=== PATIENT | male | born 1950 | race Caucasian/White ===

== ENCOUNTER → 2017-02-28 | Outpatient (CLI) | payer BC ==
[~2017-02-28] MED LIST: FLUT0.15 NAE
--- NOTE | 2017-02-28 10:21 | DIAGNOSTIC IMAGING REPORT ---
RENAL ULTRASOUND HISTORY: Nephrolithiasis. COMPARISON: Abdomen and pelvis CT 03/18/2016. Renal ultrasound 03/06/2016. FINDINGS: Right kidney: 9.8 cm. No hydronephrosis. Moderate cortical thinning, unchanged. A 1.6 cm lower pole parapelvic cyst is again noted. There are 2 subcentimeter cysts within the right kidney with the largest measuring 9 mm. Left kidney: 11.8 cm. No hydronephrosis. Normal corticomedullary differentiation and cortical thickness. Bladder: No bladder wall thickening. The bilateral ureteral jets were identified. IMPRESSION: No hydronephrosis or renal stones. Right renal cysts. Electronically signed by: Jeet Bajwa M.D. 02/28/2017 10:20 AM Dictated Date/Time: 02/28/2017 10:18 AM
== END | disposition home or self-care (01) ==
LOC: C.ULTR 09:14
PROVIDERS: ATTEND Urology
DX: N28.1 Cyst of kidney, acquired (principal)

== ENCOUNTER → 2018-02-28 | Outpatient (CLI) | payer BC ==
--- NOTE | 2018-02-28 12:11 | DIAGNOSTIC IMAGING REPORT ---
KUB CLINICAL HISTORY: N20.0 Kidney [id number] NEPHROLITHIASIS COMPARISON STUDY: No previous studies for comparison. FINDINGS: There is no pathologic bowel dilatation. There is a punctate calcification projected over the upper pole the left kidney suspicious for a calculus. The right renal shadow is largely obscured overlying bowel gas and fecal material. There are no calcifications suspicious for ureteral calculi. There is a 19 mm sclerotic lesion within the right iliac bone, likely representing a bone island. IMPRESSION: 1. No evidence of pathologic bowel dilatation 2. Suspected punctate left renal calculus. Electronically signed by: Armen Junior M.D. 02/28/2018 12:10 PM Dictated Date/Time: 02/28/2018 12:08 PM
--- NOTE | 2018-02-28 13:02 | DIAGNOSTIC IMAGING REPORT ---
RENAL ULTRASOUND HISTORY: Kidney stones. COMPARISON: Abdomen and pelvis CT 03/18/2016. FINDINGS: Right kidney: 10 cm. No hydronephrosis. Moderate cortical thinning. A 1.9 cm parapelvic cyst is again noted. Left kidney: 11 cm. No hydronephrosis. Mild cortical thinning. The left kidney is partially obscured by overlying bowel gas. Bladder: No bladder wall thickening. The bilateral ureteral jets were identified. IMPRESSION: 1. No hydronephrosis. 2. Moderate right and mild left cortical renal thinning. Electronically signed by: Jeet Bajwa M.D. 02/28/2018 1:01 PM Dictated Date/Time: 02/28/2018 12:59 PM
== END | disposition home or self-care (01) ==
LOC: C.ULTR 11:29
PROVIDERS: ATTEND Urology
DX: N20.0 Calculus of kidney (principal)

== ENCOUNTER → 2018-06-27 | Outpatient (CLI) | payer BC | END | disposition home or self-care (01) | LOC: C.RDSM 09:31 | PROVIDERS: ATTEND Orthopaedic Surgery Sports Medicine | DX: M79.672 Pain in left foot (principal) ==

== ENCOUNTER 2023-10-11 13:50 | Observation (INO) ==
--- NOTE | 2023-10-11 16:11 | XRay Report ---
KUB CLINICAL HISTORY: Right flank pain. COMPARISON STUDY: KUB March 31, 2021. CT of the abdomen and pelvis April 29, 2021. FINDINGS: A few bilateral renal calculi measure up to 3 mm. Pelvic calcifications represent phlebolit hs and vascular calcifications. No ureteral calculi are identified. Right iliac bone island is incide ntally noted. No evidence for a bowel obstruction. IMPRESSION: 1. Several small bilateral renal calculi. 2. No ureteral calculi. ACT 112: Negative or not required by law. Electronically signed by: Shar Park M.D. 10/11/2023 4:09 PM
[2023-10-11 16:43] LABS: Basophils # (auto) 0.02 K/uL (0.00-0.20); Basophils % (auto) 0.3 %; Eosinophils # (auto) 0.01 K/uL (0.00-0.50); Eosinophils % (auto) 0.1 %; Hemoglobin 16.3 g/dl (14.0-18.0); Immature Granulocytes # (auto) 0.12 K/uL (0.01-0.20); Immature Granulocytes % (auto) 1.6 %; Lymphocytes # (auto) 0.29 K/uL (1.20-3.40); Lymphocytes % (auto) 3.8 %; Mean Corpuscular Hemoglobin 29.2 pg (25.0-34.0); Mean Corpuscular Hgb Conc 33.3 g/dL (32.0-36.0); Mean Corpuscular Volume 87.8 fL (80.0-100.0); Mean Platelet Volume 10.7 fL (9.4-12.4); Monocytes # (auto) 0.41 K/uL (0.11-0.59); Monocytes % (auto) 5.4 %; Neutrophils % (auto) 88.8 %; Platelet Count 112 K/uL (130-400); RDW Coefficient of Variation 13.6 % (11.5-14.5); RDW Standard Deviation 43.9 fL (36.4-46.3); Red Blood Count 5.58 M/uL (4.70-6.10); White Blood Count 7.65 K/ul (4.8-10.8)
[2023-10-11 16:45] LABS: Appearance Urine Clear (Clear); Bilirubin Urine Negative (Negative); Blood Urine Negative (Negative); Color Urine Yellow; Glucose Urine UA Negative (Negative); Ketones Urine 1+ (Negative); Leukocyte Esterase Urine Negative (Negative); Nitrite Urine Negative (Negative); Protein Urine Negative (Negative); Specific Gravity Urine 1.024 (1.000-1.030); Urobilinogen Urine Negative (Negative)
[2023-10-11 16:56] LABS: Albumin Level 4.6 gm/dl (3.4-5.0); Bilirubin,Total 0.7 mg/dl (0.2-1.0); Calcium 9.8 mg/dl (8.6-10.3); Potassium 4.1 mmol/L (3.5-5.1)
[2023-10-11 17:02] LABS: Albumin Globulin Ratio 1.6 (0.9-2); BUN Creatinine Ratio 19.7 (10-20); Creatinine Clr Calc Pharmacy 53.9 ml/min; Est GFR (African American) 67.7 ml/min; Est GFR (Non-African American) 58.5 ml/min; Globulin 2.8 gm/dl (2.5-4.0); Total Protein 7.4 gm/dl (6.0-8.3)
--- NOTE | 2023-10-11 18:07 | CT Scan Report ---
CT abd pelvis wo con CLINICAL HISTORY: poss ureteral stone TECHNIQUE: Helical axial images of the abdomen and pelvis were obtained. Automated dose lowering tech niques and/or adjustment according to patient size were utilized for this exam. This exam was perfor med without intravenous contrast. CT DOSE: 1002.42 mGy.cm COMPARISON: Comparison is made to CT abdomen pelvis 04/29/2021 FINDINGS: Lower chest: Bibasilar atelectasis versus scarring is seen. Liver: Unremarkable. No focal lesions are seen. Gallbladder and biliary tree: Gallbladder stones are seen. The gallbladder wall measures 3 mm with mi ld pericholecystic fluid. No intra- or extrahepatic biliary ductal dilation. Pancreas: Unremarkable, no focal lesions. Spleen: Splenule is incidentally noted. Adrenals: Unremarkable. Kidneys and ureters: Perinephric stranding is noted bilaterally. Multiple renal cysts are seen. Nonob structive stones are seen bilaterally. No ureteral stones noted. Bladder: Diffuse homogeneous wall thickening is seen. Reproductive organs: Prostatomegaly is seen. Bowel: Diverticulosis is seen without evidence of diverticulitis. Patient is status post appendectomy . Lymph nodes Retroperitoneal: Unremarkable. Pelvic: Unremarkable. Mesenteric: Unremarkable. Peritoneum: Normal. Vessels: Atherosclerotic calcifications are seen. Abdominal wall: Unremarkable. Bones: Focal sclerotic lesion in the right iliac wing measuring 2 cm is unchanged from prior exam. IMPRESSION: 1. Prominence of the gallbladder wall with pericholecystic fluid and multiple renal stones, findings are suggestive of acute cholecystitis. Clinical correlation is recommended. 2. No evidence of ureteral stones or hydronephrosis. Nonobstructive stones are seen. 3. Diverticulosis without diverticulitis. ACT 112: Negative or not required by law. Electronically signed by: Victor Manuel Herrera M.D. 10/11/2023 6:05 PM
[2023-10-11] MEDS ORDERED: metroNIDAZOLE 500 MG/100 ML BAG IV STA (18:31)
[2023-10-11] MEDS ORDERED: cefTRIAXone SODIUM 2,000 MG/50 ML BAG IV STA (18:31)
--- NOTE | 2023-10-11 19:29 | Surgery Consultation ---
Date of Consultation October 11, 2023 Assessment & Plan (1) Cholelithiasis: The patient is being admitted on the hospitalist service. From a surgical perspective we recommend proceeding as follows: Provide analgesics Provide antiemetics The patient has no elevation of his LFTs or leukocytosis and does not have definite cholecystitis on CT scan of the abdomen pelvis. We will therefore obtain a gallbladder ultrasound for further delineation of the biliary system. If the patient is noted to have cholecystitis on gallbladder ultrasound we will tentatively plan for cholecystectomy with Dr. Sultana on 10/12/2023. If the gallbladder ultrasound is still not definitive for cholecystitis consideration will be given to performing a HIDA scan on 10/12/2023 The patient has been initiated on antibiotics in form of Rocephin and Flagyl which should continue IV fluids to be provided for hydration Serial labs to be followed I feel it is acceptable for patient to have clear liquids this evening but we will make him n.p.o. after midnight in anticipation of potential surgery on 10/12/2023 We will check a portable chest x-ray as well as an EKG for preoperative purposes Would recommend using SCDs only for DVT prevention, no chemical means due to the potential need for surgery Additional recommendations to be forthcoming based on his ensuing clinical work- up as it unfolds History of Present Illness Reason for Consultation: Cholelithiasis was concern for cholecystitis History of Present Illness This is a 73-year-old male who presented to [facility] secondary to some right flank pain along with right upper quadrant pain. Question the patient about symptomatology in the past several weeks to months and the patient notes that he has been getting some postprandial pain primarily confined to the right upper quadrant for the past several months. He says that this usually occurs between 30 and 60 minutes after eating and usually resolves within an hour. He notes that he had similar symptoms today but he also had some pain in his right flank and it appeared to be worse than usual so he presented to the emergency department. Patient says he does have a history of kidney stones and that is what he thought the problem was. With his current symptomatology he has had some nausea and vomiting. He does note that his current presentation occurred approximate 2 hours after eating breakfast. He denies any fevers, shakes, or chills. He has had a previous abdominal surgeries in the form of an appendectomy. He also states that he has a known history of gallstones. Since arrival to hospital patient has had labs and imaging which I independent reviewed. The patient had a KUB that showed some small bilateral renal calculi with no ureteral calculi noted. A CT scan of the abdomen pelvis was performed. This showed some prominence of the gallbladder with some pericholecystic fluid and multiple gallstones suggestive of cholecystitis. There is no evidence of any ureteral stones or hydronephrosis. Labs include a CBC her white blood cell count, hemoglobin and hematocrit were normal. Platelet count was slightly low at 112,000. Chemistry profile showed sodium, potassium, and creatinine were normal. There is no elevation of patient's bilirubin, transaminases, or alkaline phosphatase. A urinalysis was not taken of infection. As noted above the patient says he has a known history of gallstones. His records were reviewed and he did have a comparison CT scan from 04/29/2021. This study did show the patient had numerous calcified gallstones without CT evidence of cholecystitis. The patient notes that he leads an active lifestyle able to perform various house and outdoor yard chores without any limiting factors. He specifically notes that he can walk up steps and inclines without any chest pain or shortness of breath. It is also noteworthy to mention that the patient says that he was a type II diabetic, but he notes that he does not have to take any medication for this condition as he has resolved this condition with diet and exercise. At the time of my interview the patient was resting comfortably in bed he was in no distress. Addendum: Chest x-ray was performed did not show any evidence of pneumonia. An EKG was performed that showed normal sinus rhythm without changes indicative of acute ischemia Allergies Allergy/AdvReac Type Severity Reaction Status Date / Time Sulfa (Sulfonamide AdvReac Mild Nausea Verified 10/11/23 18:19 Antibiotics) Home Medications Medication Instructions Recorded Confirmed Type K4-X-ueoro-soy 2 cap PO DAILY 07/27/23 10/11/23 History nahtf-vcymmwktgq-gehzoalp 1,200 unit-15 unit-35 mcg cap (Prostate 2.4) calcium carbonate 500 mg-vitamin 1 tab PO BID 07/27/23 10/11/23 History D3 10 mcg (400 unit) tablet (Calcium 500 + D) famotidine 20 mg tablet 20 mg PO DAILY PRN Acid Reflux 07/27/23 10/11/23 History fluticasone propionate 50 1 spray intranasal DAILY PRN 07/27/23 10/11/23 History mcg/actuation nasal .allergies spray,suspension (Flonase Allergy Relief) rosuvastatin 20 mg tablet 20 mg PO HS 07/27/23 10/11/23 History tamsulosin 0.4 mg capsule 0.4 mg PO BID 07/27/23 10/11/23 History Patient History Medical History Cystocele Repaired 2002 Kidney stones Surgical History History of wisdom tooth extraction 1966 History of lithotripsy 1980 History of appendectomy 1961 Family History Mother Hearing loss Heart disease Other No family history of adverse response to anesthesia No family history of bleeding disorder Social History Smoking Status: Never smoker Tobacco Type: Cigarettes Hx Alcohol Use: No Hx Substance Use: No Preferred Language: Romansh Feels Safe at Home: Yes Review of Systems Constitutional: no fever and no chills Ear, Nose, Mouth, Throat: no hearing loss Respiratory: no cough and no dyspnea Cardiovascular: no chest pain Gastrointestinal: as per Subjective / HPI Genitourinary: no dysuria Musculoskeletal: + back pain (Right flank) Integumentary: no rash Neurologic: no localized weakness Physical Exam Constitutional: WD/WN, vitals as above Eyes: + anicteric sclerae ENMT: Ears: no hearing impairment and no external ear abnormality Mouth: no oropharynx abnormality Neck: trachea midline Respiratory: normal respiratory effort; no respiratory distress and no labored breathing Cardiovascular: Rate/Rhythm: regular rate and regular rhythm Gastrointestinal (Abdomen): Abdomen is soft and nondistended. It is nonrigid. Bowel sounds are present. There is no rebound tenderness or guarding. The patient did have some pain with deep palpation in the right upper quadrant Musculoskeletal: No calf tenderness Skin: no rashes Neurologic: moves all extremities Psychiatric: A+Ox3, euthymic affect Results & Data Vital Signs (Past 12 Hours) Vital Signs Temp Pulse Pulse Resp BP BP Pulse Ox 10/11/23 18:56 54 L 18 149/78 H 99 10/11/23 14:20 36.6 C 56 L 16 152/73 H 98 O2 Del Method 10/11/23 18:56 10/11/23 14:20 Room Air PG Care Time/CCT Total # of Minutes Spent Total Time Spent with Patient: Total time spent is greater than 50% in coordination of care (as documented) at patient's floor/unit and/or counseling patient: Coding Level of Care Code 76526 INT INP/OBS CARE 75MIN Diagnoses Cholelithiasis K80.20
--- NOTE | 2023-10-11 19:30 | History & Physical Report ---
Date of Service October 11, 2023 Assessment & Plan (1) Cholelithiasis: Plan: Consult surgery - planning on US, if negative for acute edin will get HIDA in AM - suspect he has more of an underlying chronic cholecystitis given normal exam, equivocal imaging findings, LFTs and WBC NPO after midnight Ceftriaxone + metronidazole to cover for acute edin pending further workup (2) Right flank pain: Plan: Suspect this pain for the last 2-3 months is biliary colic. Plan VTE Prophyalxis - deferred pending surgical decision Diet - clear liquid, low fat (after US), NPO after midnight Disposition - observation to med/surg Admission and Anticipated Discharge Date Admission Date: October 11, 2023 History of Present Illness Chief Complaint: Right flank pain Primary Care Provider: DO Daniel Patino is a 73 year old male who presents to the ER with Right flank pain on and off for the last 2-3 months. He reports the pain lasted longer today with increased severity and associated vomiting therefore decided to come to the ER. He reports current severity 4-5/10, on arrival to the ER it was at it's worse 8-9/10. No change in BM, diarrhea, constipation or black stool. He reports similar symtpoms with multiple kidney stones in the past. No association with pain to eating. Allergies Allergy/AdvReac Type Severity Reaction Status Date / Time Sulfa (Sulfonamide AdvReac Mild Nausea Verified 10/11/23 18:19 Antibiotics) Home Medications Medication Instructions Recorded Confirmed Type C0-F-rhfjh-soy 2 cap PO DAILY 07/27/23 10/11/23 History qcgdf-cbjuevmzdw-ebqfrfkv 1,200 unit-15 unit-35 mcg cap (Prostate 2.4) calcium carbonate 500 mg-vitamin 1 tab PO BID 07/27/23 10/11/23 History D3 10 mcg (400 unit) tablet (Calcium 500 + D) famotidine 20 mg tablet 20 mg PO DAILY PRN Acid Reflux 07/27/23 10/11/23 History fluticasone propionate 50 1 spray intranasal DAILY PRN 07/27/23 10/11/23 History mcg/actuation nasal .allergies spray,suspension (Flonase Allergy Relief) rosuvastatin 20 mg tablet 20 mg PO HS 07/27/23 10/11/23 History tamsulosin 0.4 mg capsule 0.4 mg PO BID 07/27/23 10/11/23 History Past Med/Surg History Medical History Cystocele Repaired 2002 Kidney stones Surgical History History of wisdom tooth extraction 1967 History of lithotripsy 1980 History of appendectomy 196 Family History Mother Hearing loss Heart disease Other No family history of adverse response to anesthesia No family history of bleeding disorder Social History Smoking Status: Never smoker Tobacco Type: Cigarettes Hx Alcohol Use: No Hx Substance Use: No Preferred Language: Thai Feels Safe at Home: Yes Review of Systems Review of Systems: All systems reviewed & are unremarkable except as noted in HPI & below Physical Exam Constitutional: WD/WN, vitals as above Respiratory: normal respiratory effort, lungs clear to auscultation Cardiovascular: RRR, no murmur, no edema Gastrointestinal (Abdomen): normal bowel sounds, soft, nontender, no hepatosplenomegaly Musculoskeletal: no cyanosis or clubbing, extremities motor strength 5/5 Skin: no rashes, warm and dry Neurologic: moves all extremities and awake; not confused Psychiatric: A+Ox3, euthymic affect Genitourinary: no CVA tenderness Results & Data Results & Data Vital Signs (Past 12 Hours) Vital Signs Temp Pulse Pulse Resp BP BP Pulse Ox 10/11/23 18:56 54 L 18 149/78 H 99 10/11/23 14:20 36.6 C 56 L 16 152/73 H 98 O2 Del Method 10/11/23 18:56 10/11/23 14:20 Room Air Diagnostic Findings CT abd pelvis wo con CLINICAL HISTORY: poss ureteral stone TECHNIQUE: Helical axial images of the abdomen and pelvis were obtained. Automated dose lowering techniques and/or adjustment according to patient size were utilized for this exam. This exam was performed without intravenous contrast. CT DOSE: 1002.42 mGy.cm COMPARISON: Comparison is made to CT abdomen pelvis 04/29/2021 FINDINGS: Lower chest: Bibasilar atelectasis versus scarring is seen. Liver: Unremarkable. No focal lesions are seen. Gallbladder and biliary tree: Gallbladder stones are seen. The gallbladder wall measures 3 mm with mild pericholecystic fluid. No intra- or extrahepatic biliary ductal dilation. Pancreas: Unremarkable, no focal lesions. Spleen: Splenule is incidentally noted. Adrenals: Unremarkable. Kidneys and ureters: Perinephric stranding is noted bilaterally. Multiple renal cysts are seen. Nonobstructive stones are seen bilaterally. No ureteral stones noted. Bladder: Diffuse homogeneous wall thickening is seen. Reproductive organs: Prostatomegaly is seen. Bowel: Diverticulosis is seen without evidence of diverticulitis. Patient is status post appendectomy. Lymph nodes Retroperitoneal: Unremarkable. Pelvic: Unremarkable. Mesenteric: Unremarkable. Peritoneum: Normal. Vessels: Atherosclerotic calcifications are seen. Abdominal wall: Unremarkable. Bones: Focal sclerotic lesion in the right iliac wing measuring 2 cm is unchanged from prior exam. IMPRESSION: 1. Prominence of the gallbladder wall with pericholecystic fluid and multiple renal stones, findings are suggestive of acute cholecystitis. Clinical correlation is recommended. 2. No evidence of ureteral stones or hydronephrosis. Nonobstructive stones are seen. 3. Diverticulosis without diverticulitis. Medications Administered ER Medications Given: Ceftriaxone 2g IV Metronidazole 500mg IV Code Status & VTE Plan Code Status Full VTE Prophylaxis Plan VTE Prophylaxis will be ordered: No PG Care Time/CCT Total # of Minutes Spent Total Time Spent with Patient: Total time spent is greater than 50% in coordination of care (as documented) at patient's floor/unit and/or counseling patient: Coding Level of Care Code 89674 INT INP/OBS CARE 2/55MIN Diagnoses Cholelithiasis K80.20 Right flank pain R10.9
[2023-10-11] MEDS ORDERED: FAMOTIDINE 20 MG in SYRINGE 3 ML IV SCH (20:00)
[2023-10-11] MEDS ORDERED: ROSUVASTATIN CALCIUM 20 MG TAB PO SCH (21:42)
[2023-10-11] MEDS ORDERED: ACETAMINOPHEN 325 MG TAB PO PRN (21:42)
[2023-10-11] MEDS: PLASMA-LYTE A 1,000 ML IV SCH (22:13)
[2023-10-11] MEDS: TAMSULOSIN HCL 0.4 MG CAP PO SCH (22:13)
--- NOTE | 2023-10-11 23:06 | Ultrasound Report ---
Exam(s): US GALLBLADDER EXAM: US Abdomen Limited, Gallbladder CLINICAL HISTORY: Reason for exam: ? cholecystitis. TECHNIQUE: Real-time ultrasound of the right upper quadrant with image documentation. COMPARISON: No relevant prior studies available. FINDINGS: Liver: Irregular cyst in the LEFT hepatic lobe measures 1.1 x 1.1 cm. Gallbladder: Diffuse cholelithiasis. Gallbladder wall thickening is 4 mm (upper limits of normal). Negative Gonazlez sign. Correlate for acute cholecystitis. Common bile duct: 5 mm common bile duct. No stones. No dilation. Pancreas: Poorly evaluated pancreas. Right kidney: Multiple right-sided renal cysts, measuring up to 2.1 cm. IMPRESSION: 1. Diffuse cholelithiasis. Gallbladder wall thickening is 4 mm (upper limits of normal). Negative Gonzalez sign. Correlate for acute cholecystitis. 2. Irregular cyst in the LEFT hepatic lobe measures 1.1 x 1.1 cm. Electronically signed by: Ryan Velasquez MD 10/11/23 23:05 PM
--- NOTE | 2023-10-11 23:48 | Emergency Department Note ---
History of Present Illness General Chief Complaint: Urinary Symptoms Stated Complaint: KIDNEY STONE, PAIN WHEN URINARTING, VOMITING Time Seen by Provider: 10/11/23 17:45 History of Present Illness Provider Complaint: abdominal pain and flank pain Onset (ago): 1 day(s) Location: R flank Migration to: RUQ and RLQ Maximum Pain Intensity: 9 Current Pain Intensity: 9 Quality: + stabbing and + sharp Relieved By: + nothing Exacerbated By: + nothing Context: + history of similar episodes (Feels like kidney stones that he has had in the past); no foreign travel, no possible food poisoning, no sick contacts, no recent antibiotic use, no recent surgery/procedure or no recent injury Associated Symptoms: + nausea and + vomiting; no diarrhea, no fever, no chills, no constipation, no dysuria, no hematemesis, no hematochezia, no melena, no hematuria, no headache, no chest pain and no breathing difficulty Home Medications Medication Instructions Recorded Confirmed Type P8-Q-pvant-soy 2 cap PO DAILY 07/27/23 10/11/23 History jliiq-kpfyffyomt-ugbkshrn 1,200 unit-15 unit-35 mcg cap (Prostate 2.4) calcium carbonate 500 mg-vitamin 1 tab PO BID 07/27/23 10/11/23 History D3 10 mcg (400 unit) tablet (Calcium 500 + D) famotidine 20 mg tablet 20 mg PO DAILY PRN Acid Reflux 07/27/23 10/11/23 History fluticasone propionate 50 1 spray intranasal DAILY PRN 07/27/23 10/11/23 History mcg/actuation nasal .allergies spray,suspension (Flonase Allergy Relief) rosuvastatin 20 mg tablet 20 mg PO HS 07/27/23 10/11/23 History tamsulosin 0.4 mg capsule 0.4 mg PO BID 07/27/23 10/11/23 History Allergies Allergy/AdvReac Type Severity Reaction Status Date / Time Sulfa (Sulfonamide AdvReac Mild Nausea Verified 10/11/23 18:19 Antibiotics) Past Med/Surg History Medical History Cystocele Repaired 2002 Kidney stones Surgical History History of wisdom tooth extraction 1966 History of lithotripsy 1981 History of appendectomy 1961 Family History Mother Hearing loss Heart disease Other No family history of adverse response to anesthesia No family history of bleeding disorder Social History Smoking Status: Never smoker Tobacco Type: Cigarettes Hx Alcohol Use: No Hx Substance Use: No Preferred Language: Kazakh Communication Ability: Effective Senior Qualitative Researcher Required: No Beliefs That Will Affect Care: None Current Living Situation: Spouse Feels Safe at Home: Yes Safety Concerns: Feels Safe At This Time Physical Exam 2 Vital Signs: Vital Signs - 24 hr 10/11/23 14:20 10/11/23 18:56 Temperature 36.6 C Temperature Source Temporal Artery Sc an Pulse Rate 56 L Pulse Rate [Apical ] 54 L Respiratory Rate 16 18 Blood Pressure 152/73 H Blood Pressure [Ri ght Arm] 149/78 H Blood Pressure Cynthia n 99 Blood Pressure Cynthia n [Right Arm] 101 Pulse Oximetry 98 99 Oxygen Delivery Me thod Room Air Sepsis Recent Feve r Within 48 Hours No Sepsis New/Unexpla ined Change in Men ariela Status No Sepsis Action Take n by Nursing No Action Required Physical Exam: Physical Exam GENERAL: She is oriented to person, place, and time. She appears well-developed and well-nourished. She does not appear distressed. HENT: Exam performed. -Head: Normocephalic and atraumatic. -Right Ear: External ear normal. No mastoid erythema -Left Ear: External ear normal. No mastoid erythema -Mouth/Throat: The oropharynx is clear and moist. No trismus in the jaw. No dental abscesses or uvula swelling. No oropharyngeal exudate or tonsillar abscesses. EYES: Conjunctivae and EOM are normal.Right eye exhibits no discharge. Left eye exhibits no discharge. No scleral icterus. NECK: Normal range of motion. Neck supple. No JVD present. No tracheal deviation and normal range of motion present. CV: Normal rate, regular rhythm, normal heart sounds and intact distal pulses. There is no peripheral edema. Palpable radial pulses bue. PULM/CHEST: Effort normal and breath sounds normal. No respiratory distress. No stridor. She has no wheezes. She has no rales. -Chest Wall: She exhibits no tenderness. ABD: The abdomen is soft. Bowel sounds are normal. She has no distension. No mass is present. There is no tenderness. There is no rebound, no guarding, no Gonzalez's sign and no tenderness at McBurney's point. Rovsig negative MUSC/SKEL: Normal range of motion. There is no peripheral edema, tenderness or deformity. NEURO: Motor and sensation grossly intact. SKIN: Skin is warm and dry. She is not diaphoretic. PSYCH: She has a normal mood and affect. Behavior is normal. Judgment and thought content normal. Course Course 1744: The patient was evaluated in room C5. A complete history and physical exam was performed Cardiac monitoring: An order was placed for continuous cardiac monitoring. The monitor shows a rate of 70 with sinus rhythm interpreted by ma 1828: Vital signs stable. Labs within normal limits. CT imaging does not show any ureteral stones but does show evidence of cholecystitis. Discussed case with Dr. Sultana general surgery who recommends to for the patient to be admitted to medicine. He states the medicine team can get a HIDA scan or an ultrasound and he will evaluate the patient for possible cholecystectomy tomorrow. Patient be admitted to the [facility] team Dr. Mathis will be notified. Administered Medications Famotidine 20 mg/ Syringe 5 mls @ 2.5 mls/min IV Q24H NINA Stop: 11/10/23 19:59 Last Admin: 10/11/23 21:06 Dose: 2.5 mls/min Documented By: BLACK Parenteral Electrolytes (Plasma-Lyte A Ph 7.4) 1,000 mls @ 125 mls/hr IV .Q8H NINA Stop: 11/10/23 21:41 Last Admin: 10/11/23 22:13 Dose: 125 mls/hr Documented By: CLARA Rosuvastatin Calcium (Rosuvastatin Calcium 20 Mg Tab) 20 mg PO HS NINA Stop: 11/10/23 21:41 Last Admin: 10/11/23 22:13 Dose: 20 mg Documented By: CLARA Tamsulosin HCl (Tamsulosin Hcl 0.4 Mg Cap) 0.4 mg PO BID NINA Stop: 11/10/23 21:41 Last Admin: 10/11/23 22:13 Dose: 0.4 mg Documented By: CLARA Discontinued Medications Ceftriaxone Sodium (Rocephin) 2,000 mg in 50 mls @ 100 mls/hr IV NOW STA Stop: 10/11/23 19:00 Last Infusion: 10/11/23 19:32 Dose: Infused Documented By: Admin: 10/11/23 18:54 Dose: 100 mls/hr Documented By: BLACK Metronidazole (Flagyl) 500 mg in 100 mls @ 100 mls/hr IV NOW STA Stop: 10/11/23 19:30 Last Infusion: 10/11/23 21:07 Dose: Infused Documented By: Admin: 10/11/23 19:50 Dose: 100 mls/hr Documented By: BLACK Medical Decision Making Laboratory Data Attestation: I reviewed the patient's lab results. 10/11/23 16:19 10/11/23 16:19 Lab Results 10/11/23 10/11/23 Range/Units 16:19 16:20 WBC 7.65 (4.8-10.8) K/ul RBC 5.58 (4.70-6.10) M/uL Hgb 16.3 (14.0-18.0) g/dl Hct 49.0 (42.0-52.0) % MCV 87.8 (80.0-100.0) fL MCH 29.2 (25.0-34.0) pg MCHC 33.3 (32.0-36.0) g/dL RDW Std Deviation 43.9 (36.4-46.3) fL RDW Coeff of Johan 13.6 (11.5-14.5) % Plt Count 112 L (130-400) K/uL MPV 10.7 (9.4-12.4) fL Immature Gran % (Auto) 1.6 % Neut % (Auto) 88.8 % Lymph % (Auto) 3.8 % [place] % (Auto) 5.4 % Eos % (Auto) 0.1 % Baso % (Auto) 0.3 % Neut # (Auto) 6.80 H (1.40-6.50) K/uL Lymph # (Auto) 0.29 L (1.20-3.40) K/uL [place] # (Auto) 0.41 (0.11-0.59) K/uL Eos # (Auto) 0.01 (0.00-0.50) K/uL Baso # (Auto) 0.02 (0.00-0.20) K/uL Immature Gran # (Auto) 0.12 (0.01-0.20) K/uL Sodium 140 (136-145) mmol/L Potassium 4.1 (3.5-5.1) mmol/L Chloride 104 (98-107) mmol/L Carbon Dioxide 28 (21-32) mmol/L Anion Gap 8 (3-11) BUN 24 H (6-23) mg/dl Creatinine 1.22 (0.6-1.4) mg/dl Est Cr Clr Drug Dosing 53.9 ml/min Est GFR ( Amer) 67.7 ml/min Est GFR (Non-Af Amer) 58.5 ml/min BUN/Creatinine Ratio 19.7 (10-20) Glucose 127 H (70-99(Fasting)) mg/dl Calcium 9.8 (8.6-10.3) mg/dl Total Bilirubin 0.7 (0.2-1.0) mg/dl AST 19 (13-39) U/L ALT 20 (7-52) U/L Alkaline Phosphatase 60 (34-104) U/L Total Protein 7.4 (6.0-8.3) gm/dl Albumin 4.6 (3.4-5.0) gm/dl Globulin 2.8 (2.5-4.0) gm/dl Albumin/Globulin Ratio 1.6 (0.9-2) Urine Color Yellow Urine Appearance Clear (Clear) Urine pH 5.0 (4.5-7.5) Ur Specific [place] 1.024 (1.000-1.030) Urine Protein Negative (Negative) Urine Glucose (UA) Negative (Negative) Urine Ketones 1+ H (Negative) Urine Blood Negative (Negative) Urine Nitrite Negative (Negative) Urine Bilirubin Negative (Negative) Urine Urobilinogen Negative (Negative) Ur Leukocyte Esterase Negative (Negative) Imaging Data Radiologist's Impression: CT abd pelvis wo con CLINICAL HISTORY: poss ureteral stone TECHNIQUE: Helical axial images of the abdomen and pelvis were obtained. Automated dose lowering techniques and/or adjustment according to patient size were utilized for this exam. This exam was performed without intravenous contrast. CT DOSE: 1002.42 mGy.cm COMPARISON: Comparison is made to CT abdomen pelvis 04/29/2021 FINDINGS: Lower chest: Bibasilar atelectasis versus scarring is seen. Liver: Unremarkable. No focal lesions are seen. Gallbladder and biliary tree: Gallbladder stones are seen. The gallbladder wall measures 3 mm with mild pericholecystic fluid. No intra- or extrahepatic biliary ductal dilation. Pancreas: Unremarkable, no focal lesions. Spleen: Splenule is incidentally noted. Adrenals: Unremarkable. Kidneys and ureters: Perinephric stranding is noted bilaterally. Multiple renal cysts are seen. Nonobstructive stones are seen bilaterally. No ureteral stones noted. Bladder: Diffuse homogeneous wall thickening is seen. Reproductive organs: Prostatomegaly is seen. Bowel: Diverticulosis is seen without evidence of diverticulitis. Patient is status post appendectomy. Lymph nodes Retroperitoneal: Unremarkable. Pelvic: Unremarkable. Mesenteric: Unremarkable. Peritoneum: Normal. Vessels: Atherosclerotic calcifications are seen. Abdominal wall: Unremarkable. Bones: Focal sclerotic lesion in the right iliac wing measuring 2 cm is unchanged from prior exam. IMPRESSION: 1. Prominence of the gallbladder wall with pericholecystic fluid and multiple renal stones, findings are suggestive of acute cholecystitis. Clinical correlation is recommended. 2. No evidence of ureteral stones or hydronephrosis. Nonobstructive stones are seen. 3. Diverticulosis without diverticulitis. ACT 112: Negative or not required by law. Electronically signed by: Victor Manuel Herrera M.D. 10/11/2023 6:05 PM Dictated: 10/11/231800 Transcribed: 10/11/231800 ECG Data Attestation: I personally reviewed and interpreted this ECG as follows: Indication: abdominal pain Rate (beats per minute): 59 Rhythm: sinus bradycardia Findings: no ST depression, no ST elevation or no prolonged QT [facility] Narrative 1745: The patient was evaluated in room C5. A complete history and physical exam was performed Cardiac monitoring: An order was placed for continuous cardiac monitoring. The monitor shows a rate of 70 with sinus rhythm interpreted by ma 1828: Vital signs stable. Labs within normal limits. CT imaging does not show any ureteral stones but does show evidence of cholecystitis. Discussed case with Dr. Sultana general surgery who recommends to for the patient to be admitted to medicine. He states the medicine team can get a HIDA scan or an ultrasound and he will evaluate the patient for possible cholecystectomy tomorrow. Patient be admitted to the [facility] team Dr. Mathis will be notified. Impression & Plan Gallstones Discharge Plan Visit Data Chief Complaint: Urinary Symptoms Stated Complaint: KIDNEY STONE, PAIN WHEN URINARTING, VOMITING ED Provider: Herman Lopez Discharge Problem: Gallstones Patient Disposition: Admitted As Inpatient Discharge Instructions Interventions: ED Discharge Assessment Last Done: 10/11/23 20:54
[2023-10-12] MEDS: metroNIDAZOLE 500 MG/100 ML BAG IV SCH ×2 (03:43→13:13)
[2023-10-12] MEDS: PLASMA-LYTE A 1,000 ML IV SCH ×2 (05:26→14:38)
[2023-10-12 06:45] LABS: Basophils # (auto) 0.02 K/uL (0.00-0.20); Basophils % (auto) 0.3 %; Eosinophils # (auto) 0.07 K/uL (0.00-0.50); Eosinophils % (auto) 1.1 %; Hematocrit (blood only) 43.3 % (42.0-52.0); Hemoglobin 14.6 g/dl (14.0-18.0); Immature Granulocytes # (auto) 0.09 K/uL (0.01-0.20); Immature Granulocytes % (auto) 1.4 %; Lymphocytes # (auto) 0.59 K/uL (1.20-3.40); Lymphocytes % (auto) 9.5 %; Mean Corpuscular Hgb Conc 33.7 g/dL (32.0-36.0); Mean Corpuscular Volume 86.1 fL (80.0-100.0); Mean Platelet Volume 10.9 fL (9.4-12.4); Monocytes % (auto) 12.9 %; Neutrophils # (auto) 4.65 K/uL (1.40-6.50); Neutrophils % (auto) 74.8 %; Platelet Count 106 K/uL (130-400); RDW Coefficient of Variation 13.5 % (11.5-14.5); RDW Standard Deviation 42.5 fL (36.4-46.3); Red Blood Count 5.03 M/uL (4.70-6.10); White Blood Count 6.22 K/ul (4.8-10.8)
[2023-10-12 06:46] LABS: Albumin Globulin Ratio 1.8 (0.9-2); Albumin Level 3.9 gm/dl (3.4-5.0); Bilirubin,Total 0.8 mg/dl (0.2-1.0); Calcium 8.8 mg/dl (8.6-10.3); Creatinine Clr Calc Pharmacy 58.2 ml/min; Est GFR (African American) 74.3 ml/min; Est GFR (Non-African American) 64.1 ml/min; Globulin 2.2 gm/dl (2.5-4.0); Potassium 3.6 mmol/L (3.5-5.1); Total Protein 6.1 gm/dl (6.0-8.3)
--- NOTE | 2023-10-12 07:44 | XRay Report ---
XR chest 1V portable CLINICAL HISTORY: pre-op TECHNIQUE: Single frontal radiograph of the chest was obtained. Comparison: Comparison is made to chest radiograph 08/22/2020 FINDINGS: No lines and tubes are seen. The cardiomediastinal silhouette is normal. The lungs are clear. No evid ence of pleural effusion or pneumothorax. IMPRESSION: No acute chest disease. ACT 112: Negative or not required by law. Electronically signed by: Victor Manuel Herrera M.D. 10/12/2023 7:42 AM
[2023-10-12] MEDS: TAMSULOSIN HCL 0.4 MG CAP PO SCH (08:09)
--- NOTE | 2023-10-12 08:44 | Electrocardiogram Report ---
Test Reason : Blood Pressure : / mmHG Vent. Rate : 059 BPM Atrial Rate : 059 BPM P-R Int : 146 ms QRS Dur : 088 ms QT Int : 422 ms P-R-T Axes : 013 038 010 degrees QTc Int : 417 ms Sinus bradycardia Otherwise normal ECG When compared with ECG of 22-AUG-2020 11:03, No significant change was found Confirmed by Spike Willis ([id number]) on 10/12/2023 8:43:48 AM Referred By: REFERRED SELF Confirmed By:Spike Willis
[2023-10-12] MEDS ORDERED: FLUTICASONE PROPIONATE NA SPR 16 GM BTL SCH (09:00)
--- NOTE | 2023-10-12 12:01 | Nuclear Medicine Report ---
NUCLEAR MEDICINE HEPATOBILIARY SCAN CLINICAL HISTORY: Abnormal gallbladder on CT and ultrasound. COMPARISON: CT of the abdomen and pelvis and right upper quadrant ultrasound October 11, 2023. TECHNIQUE: 5.2 mCi of technetium 99m Choletec IV was injected at 10:10 AM on October 06, 2023. Imm ediately following injection, imaging of the abdomen was carried out for 60 minutes in the anterior p rojection. FINDINGS: Hepatic uptake of radiotracer is prompt and homogeneous. Activity is identified within the common bile duct and small bowel at 10 minutes. Gallbladder activity is first noted at 40 minutes. F illing defects within the gallbladder represent gallstones. IMPRESSION: No scintigraphic evidence for acute cholecystitis. ACT 112: Negative or not required by law. Electronically signed by: Shar Park M.D. 10/12/2023 11:59 AM
--- NOTE | 2023-10-12 14:53 | Surgery Progress Note ---
Date of Service October 12, 2023 Assessment & Plan (1) Cholelithiasis: Plan: Patient sitting up in chair Reports RUQ pain a 1/10 . TTP rates pain 2/10, has not taken pain medication today Denies CP, SOB, N/V, Fever chills since admission WBC and LFT WNL HIDA from today reads IMPRESSION: No scintigraphic evidence for acute cholecystitis. Discussed with patient that if he is able to tolerate a diet and pain is controlled he may be discharged from a surgical perspective and follow up in the office next week with Dr. Sultana to discuss outpatient cholecystectomy. Patient was agreeable. Low fat diet ordered, will see how he fares Admission and Anticipated Discharge Date Admission Date: October 11, 2023 Subjective Patient sitting up in chair Reports RUQ a 110 Denies CP, SOB, N/V, Fever chills since admission Review of Systems Constitutional: no fever and no chills Respiratory: no dyspnea Cardiovascular: no chest pain Gastrointestinal: + abdominal pain (12/06); no nausea and n o vomiting Genitourinary: no problem reported Physical Exam Physical Exam: alert oriented pleasant Constitutional: well developed, cooperative and comfortable; no acute distress Respiratory: normal respiratory effort and able to speak in complete sentences; no respiratory distress Cardiovascular: Rate/Rhythm: regular rate Gastrointestinal (Abdomen): Inspection/Auscultation: abdomen normal to inspection Percussion/Palpation: + abdomen tender (TTP RUQ 2/10) and abdomen soft Results & Data Vital Signs (Past 12 Hours) Vital Signs Temp Pulse Resp BP Pulse Ox O2 Del Method 10/12/23 07:49 98.1 F 63 16 144/66 H 96 Room Air Diagnostic Findings [facility] [place] [phone] Nuclear Medicine Report Patient: SELVIN BEARD Admit Date: 10/11/23 MR#: [id number] Address1: [facility] [place] Acct ID:[id number] Address2: Date: [address] [facility] Zip: [place] [address] Age: 73 Location: 3N Sex: M Room/Bed: N385-1 Att Phy: Halima Prieto MD Diagnosis: ACUTE CHOLECYTSTITIS, BILIARY COLIC Lyndsay Phy: Delores Villarreal DO Service Date: 10/12/23 [facility] Phy: Interpreting Phy: Shar Park MDAdmit Phy: Josh Mathis MD Ordering Phy: rFeedom Wood PA-C cc: ~ NUCLEAR MEDICINE HEPATOBILIARY SCAN CLINICAL HISTORY: Abnormal gallbladder on CT and ultrasound. COMPARISON: CT of the abdomen and pelvis and right upper quadrant ultrasound October 11, 2023. TECHNIQUE: 5.2 mCi of technetium 99m Choletec IV was injected at 10:10 AM on October 06, 2023. Immediately following injection, imaging of the abdomen was carried out for 60 minutes in the anterior projection. FINDINGS: Hepatic uptake of radiotracer is prompt and homogeneous. Activity is identified within the common bile duct and small bowel at 10 minutes. Gallbladder activity is first noted at 40 minutes. Filling defects within the gallbladder represent gallstones. IMPRESSION: No scintigraphic evidence for acute cholecystitis. ACT 112: Negative or not required by law. Electronically signed by: Shar Park M.D. 10/12/2023 11:59 AM Dictated: 10/12/23 1154 Transcribed: 10/12/23 1154 PG Care Time/CCT Total # of Minutes Spent Total Time Spent with Patient: Total time spent is greater than 50% in coordination of care (as documented) at patient's floor/unit and/or counseling patient: Coding Level of Care Code 54903 SUB INP/OBS CARE 12/21MIN Diagnoses Cholelithiasis K80.20
--- NOTE | 2023-10-12 16:38 | Discharge Summary ---
Discharge Summary Date of Service October 12, 2023 Notes For Next Care Provider Medication Changes From Visit Added oxycodone 5mg po q8h prn severe pain Admission HPI Per Admitting Provider Daniel Williamson is a 73 year old male who presents to the ER with Right flank pain on and off for the last 2-3 months. He reports the pain lasted longer today with increased severity and associated vomiting therefore decided to come to the ER. He reports current severity 4-5/10, on arrival to the ER it was at it's worse 8-9/10. No change in BM, diarrhea, constipation or black stool. He reports similar symtpoms with multiple kidney stones in the past. No association with pain to eating. Principal Dx & Hospital Course #1 = Principal Diagnosis (1) Cholelithiasis: P/w right flank pain and nausea coming and going about twice a week for the last 2 months, worsened in severity. CT abd/pel with gallstones, RUQ US gallstones and mild pericholecystic fluid CBC, CMP, lipase all normal CXR negative Afebrile Admitted for IVFs, made NPO, empiric antibiotics for acute cholecystitis Seen by Surgery and had HIDA scan which ruled out cholecystitis Pain resolved and is likely due to symptomatic cholelithiasis Tolerated low fat diet for dinner Discharge to home on low fat diet and recommend f/u with Surgery as outpt to discuss elective lap cholecystectomy in future gave small supply of po oxycodone to have on hand in case of gallstone attack at home (2) Right flank pain: Suspect this pain for the last 2-3 months is biliary colic. No kidney stones on CT abd/pel (3) Thrombocytopenia: mild, plts 106-112 here and have been like this at least for a few years in our lab results he said his PCP is aware and is doing more of a workup as an outpt. He saw Heme in the past for this and was told nothing much to worry about SUspect chronic ITP? No splenomegaly on CT here f/u with PCP and possibly Heme as outpt Plan Disposition - dc to home. Discussed care with at bedside Discharge Exam Constitutional WD/WN, vitals as above Neck trachea midline, no thyromegaly Respiratory normal respiratory effort, lungs clear to auscultation Cardiovascular RRR, no murmur, no edema Chest (Breasts) Chest: normal inspection of chest Gastrointestinal (Abdomen) normal bowel sounds, soft, nontender, no hepatosplenomegaly except very mild +TTP in RUQ without any guarding or rebound Musculoskeletal Extremities: extremities normal to inspection; no cyanosis and no clubbing Skin no rashes, warm and dry Neurologic moves all extremities and awake; no focal motor deficits Psychiatric A+Ox3, euthymic affect Lymphatic no lymphedema Updated Medication List Medication Instructions Recorded Confirmed Type Z4-A-fuaer-soy 2 cap PO DAILY 07/27/23 10/11/23 History ayzpe-gwlkhowqot-urwyffnx 1,200 unit-15 unit-35 mcg cap (Prostate 2.4) calcium carbonate 500 mg-vitamin 1 tab PO BID 07/27/23 10/11/23 History D3 10 mcg (400 unit) tablet (Calcium 500 + D) famotidine 20 mg tablet 20 mg PO DAILY PRN Acid Reflux 07/27/23 10/11/23 History fluticasone propionate 50 1 spray intranasal DAILY PRN 07/27/23 10/11/23 History mcg/actuation nasal .allergies spray,suspension (Flonase Allergy Relief) rosuvastatin 20 mg tablet 20 mg PO HS 07/27/23 10/11/23 History tamsulosin 0.4 mg capsule 0.4 mg PO BID 07/27/23 10/11/23 History oxycodone 5 mg tablet 5 mg PO Q8H PRN pain, severe #5 10/12/23 Rx tabs Hospital Stay Data Consultations 10/11/23 18:33 Consult General Surgery Stat ED Decision to Admit Stat Diagnostic Imagining Performed 10/11/23 16:50 CT abd pelvis wo con Stat 10/11/23 19:08 US GB [US gallbladder] Stat Pending Results Patient Have Any Pending Studies at Discharge: No Discharge Instructions Given to Patient (Per Discharging Provider) You were admitted with pain and nausea from passing gallstones. You had testing that ruled out an infection of the gallbladder. You should remain on a low fat diet and follow up with the surgeon to discuss removing your gallbladder electively to prevent recurrences of gallstone attacks. You can take oxycodone as needed for pain from a gallstone but if pain persists, please return to the ER. Total Time Total Time Spent Total Time Spent (In Minutes): 35 min Coding Level of Care Code 63026 INP/OBS DISCH >30 MIN Diagnoses Cholelithiasis K80.20 Right flank pain R10.9 Thrombocytopenia D69.6
[2023-10-12] MEDS ORDERED: cefTRIAXone SODIUM 2,000 MG in DEXTROSE 5 % MINI-B 50 ML IV SCH (19:00)
--- OUTSIDE RECORDS SUMMARY | 2023-10-13 18:38 | External Medical Summary | Continuity of Care Document ---
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 Name Role Phone Delores Villarreal Primary Care P anam [phone] Encounter [facility] [place] [id number] Date(s): 09/12/23 - 09/12/23 [facility] [address] [place] [id number] [address] [place] [address] Encounter Diagnosis Diabetes(Discharge Diagnosis) - 09/12/23 Diabetic neuropathy(Discharge Diagnosis) - 09/12/23 Lower back pain(Discharge Diagnosis) - 09/12/23 Pes planus of left foot(Discharge Diagnosis) - 09/12/23 Posterior tibial tendinitis, left leg(Discharge Diagnosis) - 09/12/23 Tarsal tunnel syndrome, bilateral(Discharge Diagnosis) - 09/12/23 Discharge Disposition: Home or Self Care Attending Physician: KASANDRA Jovel Christina L Allergies, Adverse Reactions, Alerts Substance Reaction Severity Status sulfa drugs Nausea Active Assessment and Plan Extracted from: Title:Follow Up Visit Author:KASANDRA Jovel, Hernan Ramos Date:09/12/23 1.Diabetes Today reviewed EMG results and provided patient with a hard printed out copy I still feel that there is an element of probably diabetic neuropathy as well as his lower back and scoliosis some more contributing to what we see in his feet, I do feel at this point his pain is not severe enough to warrant surgery of either a tarsal tunnel release or flatfoot reconstructive surgery. We will continue to manage the neuropathy with diabetic shoes that provide adequate support if we do note worsening of the neuropathy worsening of the tendinitis or worsening of the flatfoot deformity or accompanied with the wound will recommend surgical intervention at this point we will delay patient in agreement recommend follow-up in 6 months. 19-minute follow-up visit, 7-minute chart review,12 minutes [id number] 2.Diabetic neuropathy 3.Lower back pain 4.Pes planus of left foot 5.Posterior tibial tendinitis, left leg 6.Tarsal tunnel syndrome, bilateral Immunizations Given and Recorded Vaccine Date Status Refusal Reason pneumococcal 20-valent conjugate vaccine 06/30/23 Given SARS-CoV-2 mRNA (Pfizer 12+) bivalent 11/15/22 Rec orded SARS-CoV-2 (COVID-19) mRNA BNT-162b2 vax 1 11/10/21 Recorded SARS-CoV-2 (COVID-19) mRNA BNT-162b2 vax 2 01/20/21 Recorded SARS-CoV-2 (COVID-19) mRNA BNT-162b2 vax 3 12/30/20 Recorded pneumococcal 13-valent vaccine 07/16/15 Given tetanus/diphtheria/pertuss, acel (Tdap) 04/17/13 R ecorded zoster vaccine live 04/23/10 Recorded tetanus toxoids-diphtheria, Td (Adult) 11/27/05 Re corded pneumococcal 23-valent vaccine 11/27/02 Recorded 1Result Comment: 2022-08-25: Historical information-source unspecified 2Result Comment: 2021-07-14: Historical information-source unspecified 3Result Comment: 2021-07-14: Historical information-source unspecified Medications Afrin 0.05% nasal spray Start: 04/06/22 13:29:00 EDT, 1 spray, each nostril, Daily, PRN: allergy symptoms Start Date: 04/06/22 Status: Ordered Calcium 500+D Start: 04/06/22 13:28:00 EDT, 2 gummy, PO, Daily Start Date: 04/06/22 Status: Ordered Crestor 20 mg oral tablet Start: 07/12/23 17:18:00 EDT, 1 tab, PO, qhs, Disp# 90 tab, Refills: 3, Pharmacy: [facility] [id number] Start Date: 07/12/23 Status: Ordered famotidine 20 mg oral tablet Start: 04/06/22 13:28:00 EDT, 1 tab, PO, Daily Start Date: 04/06/22 Status: Ordered Flomax 0.4 mg oral capsule Start: 12/30/22 11:59:00 EST, 1 cap, PO, bid, Disp# 180 cap, Refills: 6, Pharmacy: [id number] Start Date: 12/30/22 Stop Date: 09/20/24 Status: Ordered Flonase 50 mcg/inh nasal spray Start: 09/25/14 9:24:08, 1 spray, intranasal, bid, Disp# 1 each, Refills: 6, Pharmacy: [facility], 1 spray intranasal bid Start Date: 09/25/14 Status: Ordered Prostate 2.4 Start: 01/19/22 13:45:00 EST, 2 cap, PO, Daily Start Date: 01/19/22 Status: Ordered Mental Status 09/12/23 Barriers to Learning one year None evide nt, Vision impairment, Other: glasses Mandatory Health Literacy Documentation Yes Health Literacy Communication Barriers N ever Primary Language Canadian Problem List Condition Confirmation Course Effective Dates Status H ealth Status Informant Adenocarcinoma of prostate Confirmed Active Cataract, bilateral Confirmed Active Tarsal tunnel syndrome, bilateral Confirmed Active Chronic kidney disease, stage 3a 1 Confirmed Active Diabetes Confirmed Active ED (erectile dysfunction) Confirmed Active Lower back pain Confirmed Active Myopia with astigmatism and presbyopia Confirmed Active Nephrolithiasis Confirmed Active Diabetic neuropathy Confirmed Active Osteopenia of spine Confirmed Active Thrombocytopenia Confirmed Active PVD (posterior vitreous detachment) Confirmed Active 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 Confirmed Active Retinal detachment Confirmed Active Scoliosis Confirmed Active Pes planus of left foot Confirmed Active Posterior tibial tendinitis, left leg Confirmed Active Body tinea Confirmed Active Hypovitaminosis D Confirmed Active Vitreous floaters Confirmed Active 11/03/23 GFR 57; 12/19/22 GFR: 50, Cret: 1.47; 03/22/16 Out Lab GFR: 52.4, Cret: 1.40 Diagnosis Diagnosis Type Effective Dates Health Status Clinical Service Informant Lower back pain Discharge Diagnosis 09/12/23 Pes planus of left foot Discharge Diagnosis 09/12/23 Diabetes Discharge Diagnosis 09/12/23 Diabetic neuropathy Discharge Diagnosis 09/12/23 Tarsal tunnel syndrome, bilateral Discharge Diagnosis 09/12/23 Posterior tibial tendinitis, left leg Discharge Diagnosis 09/12/23 Procedures Procedure Date Related Diagnosis Body Site Status Colonoscopy 1, 2 12/15/21 Complete d KUB X-ray 3 4/4/18 Completed US EXAM ABDO BACK WALL COMP 4 02/28/18 Completed Colonoscopy 5 11/16/16 Completed Laser 6 10/08/14 Completed Cine MRI of joint movement - knee 05/2013 Completed Laser surgery x 2 2012 Complet ed Appendectomy 02/25/61 Completed Cataract surgery Complete d Hernia removed Completed History of kidney stones Completed Lithotripsy Completed Repair of cystocele 7 Com pleted [place] tooth Completed 1COLO to cecum, rectosigmoid polyp 3 mm CF, rectal polyp 2 mm CF, diverticulosis. 22 hyperplastic polyps removed. Repeat colonoscopy in 5 years. 3Impression: 1. No evidence of pathologic bowel dilation 2. Suspected punctate left renal calculus 4Impression: 1. No hydronephrosis 2. Moderate right and mild left cortical renal thinning. 57mm polyp 4mm polyp 6laser demarcation [id number] Social History Social History Type Response Smoking Status Never smoked cigaret aidan Sex Male Ortho Outpt Note * KASANDRA Jovel, Rekha Ramos: PERFORM Event Display: Ortho Outpt Note Authored Date: [id number] Chief Complaint follow-up b/l feet, Primary Care Provider Wilfred Hernandez DO, Mariana Annette Subjective Patient is a very pleasant 73-year-old male presenting today for follow-up last seen March 13, 2023he has a history of neuropathy of both feetPlanter fasciitis of the right heel. I felt that his neuropathy was likely multifactorialI felt he perhaps had an element of diabetic neuropathy I did however know that his A1c was well controlled and he was also noting recent weight loss. I felt that perhaps also some of his neuropathy symptoms were correlating with his lower back issueshe does see a chiropractor regularly I had recommended an EMG for further evaluation of his neuropathy and I also recommended diabetic shoes and insertsto better stabilize his feet because of neuropathy symptoms. I also recommended gabapentin which she did declined but could be considered in the future. -EMG results showed moderate to severebilateral tibial compressive neuropathies -Patient is having no new concernsnotes that the neuropathy symptoms are not worsening he did receive his diabetic shoes and feels that they fit overwhelmingly betterhe has no issues with the left flatfoot he is stable at today's follow-up. Review of Systems Kidney stones extremity numbness cataracts arthritisallergies to other medicationsloss of hearing sinus problems dry skin diabetes Objective Physical Exam Problem focused bilateral feet: Dorsalis pedis and posterior tibial pulses palpable 2 out of 4, capillary refill time less than 3 seconds, skin turgor is good to all digits of both feet pedal hair is present. Neurovascular status grossly intact all digits of both feet. Skin is clean dry and intact without maceration or breakdown no open wounds or lesions. Monofilament test noted to have some mild decrease sensation distallymore to lesser digits of both feet, there was some diminished proprioception as well as light touch. History of neuropathy with numbness tingling pain to distal extremities. Toenails of normal length and shape. History of limb length discrepancy likely this is functionalrelated to scoliosis lower back painleft side has a an adult acquired flatfoot deformity with likely posterior tibial tendinitisI do appreciate slightly diminished muscle strength of the posterior tibial tendonthere is moderate arthritis throughout the midfootsecondary to the adult acquired adult acquired flatfoot deformity. EMG showing tarsal tunnel syndrome, I do agree that this is probably the cause of hissymptoms on the left especially given the extent of the posterior tibial tendon is probably impressing thetibial nerve giving rise to the tarsal tunnelthis may in someway also affect the right although you know obviously there is no significant flatfoot already I am not able to reproduce a positive Tinel's sign on either right or left ankle. Right foot with history of Planter fasciitis nontender today. Assessment/Plan 1.Diabetes Today reviewed EMG results and provided patient with a hard printed out copy I still feel that there is an element of probably diabetic neuropathy as well as his lower back and scoliosis some more contributing to what we see in his feet, I do feel at this point his pain is not severe enough to warrant surgery of either a tarsal tunnel release or flatfoot reconstructive surgery. We will continueto manage the neuropathy with diabetic shoes that provide adequate support if we do note worsening of the neuropathy worsening of the tendinitis or worsening of the flatfoot deformity or accompanied with the wound will recommend surgical intervention at this point we will delay patient in agreementrecommend follow-up in 6 months. 19-minute follow-up visit, 7-minute chart review,12 minutes [id number] 2.Diabetic neuropathy 3.Lower back pain 4.Pes planus of left foot 5.Posterior tibial tendinitis, left leg 6.Tarsal tunnel syndrome, bilateral Electronic Signature on File Electronically Reviewed/Signed by: Rekha Jovel DPM Author Signature Dt/Tm:09/12/2023 08:58 AM Division of Sports Medicine CLR Patient Care team information Care Team Personnel Name: Wilfred Hernandez DO, Mariana Annette Position: Physician - Family Med Member Role: Primary Care Provider Address: Address: [address] [place] [id number] Name: MD Boyer George F Position: Physician - Family Med Member Role: Lifetime Relationship Address: Address: [address] [place] [address] Care Team Related Persons Name: LESA BEARD Address: home [address] [place], [place] [id number]
--- OUTSIDE RECORDS SUMMARY | 2023-10-13 18:38 | External Medical Summary | Continuity of Care Document ---
Author Name Unknown Organization [address] Address [address] [place] [phone] Care Team Providers Care Photograph Tinter Name Role Phone Delores Villarreal Primary Care P hysician [phone] Encounter [facility] [id number] Date(s): 09/29/23 - 09/29/[address] [place] [address], [address] [place] [address] [phone] Encounter Diagnosis Body mass index [BMI] 25.0-25.9, adult(Discharge Diagnosis) - 09/29/23 Diabetes mellitus(Discharge Diagnosis) - 09/29/23 Anemia(Discharge Diagnosis) - 09/29/23 Diabetic neuropathy(Discharge Diagnosis) - 09/29/23 Discharge Disposition: Home or Self Care Attending Physician: Wilfred Hernandez DO, Mariana Annette Referring Physician: Wilfred Hernandez DO, Mariana Annette Allergies, Adverse Reactions, Alerts Substance Reaction Severity Status sulfa drugs Nausea Active Assessment and Plan Extracted from: Title:Office Visit Note Author:Wilfred Hernandez DO, Mariana Annette Date:09/29/23 1.Diabetes mellitus STATUS:Chronic stable. DATA:Labs reviewed. GOAL:Maintain stability. PLAN:Very well controlled with diet. Tolerating statin. Recheck in 3-6 months. . 2.Anemia STATUS:Chronic stable. DATA:Labs reviewed. GOAL:Maintain stability. PLAN:obtain CBC . 3.Diabetic neuropathy STATUS:Chronic stable. DATA:Labs reviewed. GOAL:Maintain stability. PLAN:Cont f/u with podiatry and diabetic shoes . Immunizations Given and Recorded Vaccine Date Status Refusal Reason tetanus/diphtheria/pertuss, acel (Tdap) 07/27/23 R ecorded tetanus/diphtheria/pertuss, acel (Tdap) 04/17/13 R ecorded pneumococcal 20-valent conjugate vaccine 06/30/23 Given SARS-CoV-2 mRNA (Pfizer 12+) bivalent 11/15/22 Rec orded SARS-CoV-2 (COVID-19) mRNA BNT-162b2 vax 1 11/10/21 Recorded SARS-CoV-2 (COVID-19) mRNA BNT-162b2 vax 2 01/20/21 Recorded SARS-CoV-2 (COVID-19) mRNA BNT-162b2 vax 3 12/30/20 Recorded pneumococcal 13-valent vaccine 07/16/15 Given zoster vaccine live 04/23/10 Recorded tetanus toxoids-diphtheria, [...] qhs, Disp# 90 tab, Refills: 3, Pharmacy: [facility] [id number] Start Date: 07/12/23 Status: Ordered famotidine 20 mg oral tablet Start: 04/06/22 13:28:00 EDT, 1 tab, PO, Daily Start Date: 04/06/22 Status: Ordered Flomax 0.4 mg oral capsule Start: 12/30/22 11:59:00 EST, 1 cap, PO, bid, Disp# 180 cap, Refills: 6, Pharmacy: [id number] Start Date: 12/30/22 Stop Date: 09/20/24 Status: Ordered Flonase 50 mcg/inh nasal spray Start: 09/25/14 9:24:08, 1 spray, intranasal, bid, Disp# 1 each, Refills: 6, Pharmacy: [facility], 1 spray intranasal bid Start Date: 09/25/14 Status: Ordered nystatin 100,000 units/g topical ointment Start: 09/29/23 9:38:00 EDT Start Date: 09/29/23 Status: Ordered Prostate 2.4 Start: 01/19/22 13:45:00 EST, 2 cap, PO, Daily Start Date: 01/19/22 Status: Ordered Mental Status 09/29/23 Barriers to Learning one year None evide nt, Vision impairment, Other: glasses Mandatory Health Literacy Documentation Yes Health Literacy Communication Barriers N ever Primary Language Sierra Leonean Problem List Condition Confirmation Course Effective Dates [...] Effective Dates Health Status Clinical Service Informant Body mass index [BMI] 25.0-25.9, adult Discharge Diagnosis 09/29/23 Non-Specified Diabetes mellitus Discharge Diagnosis 09/29/23 Non-Specified Anemia Discharge Diagnosis 09/29/23 Non-Specified Diabetic neuropathy Discharge Diagnosis 09/29/23 Procedures Procedure Date Related Diagnosis Body Site Status Colonoscopy 1, 2 12/15/21 Complete d KUB X-ray 3 02/28/18 Completed US EXAM ABDO BACK WALL COMP 4 02/28/18 Completed Colonoscopy 5 11/16/16 Completed Laser 6 10/08/14 Completed Cine MRI of joint movement - knee 05/2013 Completed Laser surgery x 2 2012 Complet ed Appendectomy 02/25/61 Completed Cataract surgery Complete d Hernia removed Completed History of kidney stones Completed Lithotripsy Completed Repair of cystocele 7 Com pleted [place] tooth Completed 1COLO to cecum, rectosigmoid polyp 3 mm CF, rectal polyp 2 mm CF, diverticulosis. 22 hyperplastic polyps removed. Repeat colonoscopy in 5 years. 3Impression: 1. No evidence of pathologic bowel dilation 2. Suspected punctate left renal calculus 4Impression: 1. No hydronephrosis 2. Moderate right and mild left cortical renal thinning. 57mm polyp 4mm polyp 6laser demarcation [id number] Vital Signs Most recent to oldest [Reference Range]: 1 Height 177.2 cm (09/29/23 9:41 AM) Patient Weight 78.9 kg (09/29/23 9:41 AM) Body Mass Index 25.13 kg/m2 (09/29/23 9:41 AM) Temperature [36.5-37.9 DegC] 36.2 DegC *LOW* (09/29/23 9:41 AM) Blood Pressure 102/52mmHg (09/29/23 9:41 AM) Cuff Pulse Pressure 50 mmHg (09/29/23 9:41 AM) Social History Social History Type Response Smoking Status Never smoked cigaret aidan Sex Male FCM Outpt Note * Wilfred Hernandez DO, Mariana Annette: PERFORM Event Display: FCM Outpt Note Authored Date: Chief Complaint Patient here for f/u Diabetes II and LT 4th finger erythema/edema. Recent surgery ortho to drain wound. History of Present Illness 73 yo M with PMH of type 2 DM c/b neuropathy, prostate CA, vitamin D deficiency, osteopenia, thrombocytopenia. Presents for DM f/u. Diabetes Type II,controlled with comorbid disease - currently diet controlled - A1C 6.2 (Dec 2022) --> Now 5.4 -Recently startedon Crestor, tolerating well. - dietary review: working with group tester, eating more vegetables and fruits, cut down on processed sugar, monitors carbohydrate intake. - exercise regimen: walking, stretching - PCV20 - done - Foot exam: 09/12/23. follows with podiatry - Eye exam: 06/2023 [place] [facility] Also has neuropathy and had EMG showing tarsal tunnel syndrome. States not bad enough for surgery. Recently got diabetic shoes and having some relief from that. He was seen by me 07/20 for a finger infection. He was also seen in the ED for this and referred to Dr. Dobson, has the area drained and nail partially removed, his culture grew yeast. Area feelingbetter. States he hasa PMH of ?anemia and was noted on ED labs recently. but there is no record of this in our chart. Colonoscopy in 2021- polyps. No blood in stool. Physical Exam Vitals & Measurements T:36.2C BP:102/52 SpO2:94% HT:177.2cm WT:78.900kg(Dosing) WT:78.9kg BMI:25.13 PHQ2 Data(Data Documented on:09/29/2023 09:39) Emotional health assessment NEGATIVE General: _Alert and oriented, No acute distress Cardiovascular: _Normal rate, Regular rhythm, No murmur, No gallop. Respiratory: _Lungs are clear to auscultation, Respirations are non-labored, Breath sounds are equal Psych: Mood-affect congruence. Reports no SI/HI. Speech is of normal pace and content Assessment/Plan 1.Diabetes mellitus STATUS:Chronic stable. DATA:Labs reviewed. GOAL:Maintain stability. PLAN:Very well controlled with diet. Tolerating statin. Recheck in 3-6 months. . 2.Anemia STATUS:Chronic stable. DATA:Labs reviewed. GOAL:Maintain stability. PLAN:obtain CBC . 3.Diabetic neuropathy STATUS:Chronic stable. DATA:Labs reviewed. GOAL:Maintain stability. PLAN:Cont f/u with podiatry and diabetic shoes . 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 Hypovitaminosis D Lower back pain Myopia with astigmatism and presbyopia Nephrolithiasis Osteopenia of spine Pes planus of left foot Posterior tibial tendinitis, left leg PVD (posterior vitreous detachment) Retinal detachment Scoliosis Tarsal tunnel syndrome, bilateral Thrombocytopenia Vitreous floaters Historical Blood glucose abnormal Elevated PSA Foot pain Foot pain, left h/o Posterior staphyloma Knee pain Left knee pain Medical examinations/reports status Otitis, serous Otitis, serous Plantar fascia syndrome Plantar fasciitis Posterior tibial tendon dysfunction PROSTATITIS, ACUTE Seasonal allergic rhinitis Well adult Procedure/Surgical History Colonoscopy (12/15/2021)KUB X-ray (02/28/2018)US EXAM ABDO BACK WALL COMP (02/28/2018)Colonoscopy (11/16/2016)Laser (10/08/2014)Cine MRI of joint movement - knee (05/2013)Laser surgery x 2 (2012)Appendectomy (02/25/1961)Repair of cystoceleHistory of kidney stonesHernia removedLithotripsyWisdom toothCataract surgery Medications calcium-vitamin D(Calcium 500+D), 2 gummy, PO, Daily famotidine(famotidine 20 mg oral tablet), 20 mg= 1 tab, PO, Daily fluticasone nasal(Flonase 50 mcg/inh nasal spray), 50 mcg= 1 spray, intranasal, bid, 6 refills multivitamin(Prostate 2.4), 2 cap, PO, Daily nystatin topical(nystatin 100,000 units/g topical ointment) oxymetazoline nasal(Afrin 0.05% nasal spray), 1 spray, each nostril, Daily, PRN rosuvastatin(Crestor 20 mg oral tablet), 20 mg= 1 tab, PO, qhs, 3 refills tamSULOsin(Flomax 0.4 mg oral capsule), 0.4 mg= 1 cap, PO, bid, 6 refills Allergies sulfa drugsNausea Social History Smoking Status Never smoked cigarettes Alcohol - Denies Alcohol Use Type:Wine - Comments: occasional wine ks Employment/School Status:Retired Exercise - Regular exercise Exercise type:Walking Home/Environment Lives with:Spouse Substance Abuse - Denies Substance Abuse Tobacco - Denies Tobacco Use Use:Never smoker Family History Cancer: Mother. GLAUCOMA: Mother. Heart attack: Father. Heart disease: Father. Heart murmur: Mother. Osteoporosis: Mother. Health Status Family Member(s) Immunizations Vaccine Date Status tetanus/diphtheria/pertuss, acel (Tdap) 07/27/2023 Recorded pneumococcal 20-valent conjugate vaccine 06/30/2023 Given SARS-CoV-2 mRNA (Pfizer 12+) bivalent 11/15/2022 Recorded SARS-CoV-2 (COVID-19) mRNA BNT-162b2 vax 11/10/2021 Recorded Comments : 2022-08-25: Historical information-source unspecified SARS-CoV-2 (COVID-19) mRNA BNT-162b2 vax 01/20/2021 Recorded Comments : 2021-07-14: Historical information-source unspecified SARS-CoV-2 (COVID-19) mRNA BNT-162b2 vax 12/30/2020 Recorded Comments : 2021-07-14: Historical information-source unspecified pneumococcal 13-valent vaccine 07/16/2015 Given tetanus/diphtheria/pertuss, acel (Tdap) 2013 Recorded zoster vaccine live 04/23/2010 Recorded tetanus toxoids-diphtheria, Td (Adult) 11/27/2005 Recorded pneumococcal 23-valent vaccine 11/27/2002 Recorded Recommendations Health Maintenance Pending(in the next year) OverDue Adult Influenza Vaccine due05/27/23and every 1year Medicare Annual Wellness Visit due08/25/23and every 1year Due Adult COVID-19 Vaccination due09/29/23Unknown Frequency Falls Plan of Care due09/29/23Unknown Frequency Shingles Vaccine due09/29/23One-time only Due In Future Diabetic Eye Exam not due until06/26/24and every 366day Diabetes Management A1c not due until09/25/24and every 366day Body Mass Index not due until09/28/24and every 1year Satisfied(in the past 1 year) Satisfied Adult COVID-19 Vaccination on11/15/22.Satisfied by LIZETTE Blair Sara Adult Tdap/Td Vaccine on07/27/23.Satisfied by LIZETTE Bush Lori Body Mass Index on09/29/23.Satisfied by LIZETTE Bush Lori Diabetes Management A1c on09/25/23.Satisfied by Contributor_system, [email or web address] Lipid Screening on07/12/23.Satisfied by Contributor_system, [id number] Electronic Signature on File Electronically Reviewed/Signed by: Delores Hernandez DO Author Signature Dt/Tm:09/29/2023 11:53 AM Department of Family Medicine MAF Patient Care team information Care Team Personnel Name: Hardin Mary, DO, Delores Mireya Position: Physician - Family Med Member Role: Primary Care Provider Address: Address: [address] [place] [address] [address] [place] [address] [place] Name: MD Merlin, August Maher Position: Physician - Family Med Member Role: Lifetime Relationship Address: Address: [address] [place] [address] [place] [address] Care Team Related Persons Name: LESA BEARD Address: home [address] [place] [address], [place] [phone]
--- OUTSIDE RECORDS SUMMARY | 2023-10-13 18:38 | External Medical Summary | Continuity of Care Document ---
Author Name Unknown Organization [address] Address [address] [place] [id number] Care Team Providers Care Deboner Name Role Phone Delores Villarreal Primary Care P hysicijosefa [phone] Encounter [facility] [id number] Date(s): 07/24/23 - 07/24/[address] [place] [address], [address] [place] [address] [phone] Encounter Diagnosis Paronychia of finger(Discharge Diagnosis) - 07/24/23 Discharge Disposition: Home or Self Care Attending Physician: Wilfred Hernandez DO, Mariana Annette Referring Physician: Wilfred Hernandez DO, Mariana Annette Allergies, Adverse Reactions, Alerts Substance Reaction Severity Status sulfa drugs Nausea Active Assessment and Plan Extracted from: Title:Office Visit Note Author:Wilfred Hernandez DO, Mariana Annette Date:07/24/23 1.Paronychia of finger STATUS:acute GOAL:resolution PLAN:keflex 500mg qid 5 days, warm water soaks. If worseninf or not improving to return. Immunizations Given and Recorded Vaccine Date Status [...] qhs, Disp# 90 tab, Refills: 3, Pharmacy: [facility] 1640 Start Date: 07/12/23 Status: Ordered famotidine 20 mg oral tablet Start: 04/06/22 13:28:00 EDT, 1 tab, PO, Daily Start Date: 04/06/22 Status: Ordered Flomax 0.4 mg oral capsule Start: 12/30/22 11:59:00 EST, 1 cap, PO, bid, Disp# 180 cap, Refills: 6, Pharmacy: [facility] Start Date: 12/30/22 Stop Date: 09/20/24 Status: Ordered Flonase 50 mcg/inh nasal spray Start: 09/25/14 9:24:08, 1 spray, intranasal, bid, Disp# 1 each, Refills: 6, Pharmacy: [facility], 1 spray intranasal bid Start Date: 09/25/14 Status: Ordered Keflex 500 mg oral capsule Start: 07/24/23 10:49:00 EDT, 1 cap, PO, qid, Disp# 20 cap, Pharmacy: [facility] Start Date: 07/24/23 Stop Date: 07/29/23 Status: Ordered Prostate 2.4 Start: 01/19/22 13:45:00 EST, 2 cap, PO, Daily Start Date: 01/19/22 Status: Ordered Mental Status 07/24/23 Barriers to Learning one year None evide nt, Vision impairment, Other: glasses Mandatory Health Literacy Documentation Yes Health Literacy Communication Barriers N ever Primary Language Andorran Problem List Condition Confirmation Course Effective Dates Status H ealth Status Informant Adenocarcinoma of prostate Confirmed Active Cataract, bilateral Confirmed Active Tarsal tunnel syndrome, bilateral Confirmed Active Diabetes Confirmed Active ED (erectile [...] D Confirmed Active Vitreous floaters Confirmed Active Diagnosis Diagnosis Type Effective Dates Health Status Clinical Service Informant Paronychia of finger Discharge Diagnosis 07/24/23 Procedures Procedure Date Related Diagnosis Body Site [...] Completed Repair of cystocele 7 Com pleted [place] tooth Completed 1COLO to cecum, rectosigmoid polyp 3 mm CF, rectal polyp 2 mm CF, diverticulosis. 22 hyperplastic polyps removed. Repeat colonoscopy in 5 years. 3Impression: 1. No evidence of pathologic bowel dilation 2. Suspected punctate left renal calculus 4Impression: 1. No hydronephrosis 2. Moderate right and mild left cortical renal thinning. 57mm polyp 4mm polyp 6laser demarcation [id number] Vital Signs Most recent to oldest [Reference Range]: 1 Patient Weight 78.9 kg (07/24/23 10:40 AM) Heart Rate 58 bpm (07/24/23 10:40 AM) Respiratory Rate 18 br/min (07/24/23 10:40 AM) Blood Pressure 109/62mmHg (07/24/23 10:40 AM) Social History Social History Type Response Smoking Status Never smoked cigaret aidan Sex Male FCM Outpt Note * Wilfred Hernandez DO Deloressilvia Gomes: PERFORM Event Display: FCM Outpt Note Authored Date: [id number] Chief Complaint left 4th finger injection History of Present Illness Patient presents for acute visit Endorses infection of left 4th finger Had a hangnail and clipped it off last worsened over the weekend has been throbbing and keeping him awake at night He applied some triple antibiotic on it last night. Denies any fever, chills. Physical Exam Vitals & Measurements HR:58(Monitored) RR:18 BP:109/62 SpO2:98% WT:78.900kg(Dosing) WT:78.9kg PHQ2 Data(Data Documented on:07/24/2023 10:39) Emotional health assessment NEGATIVE General: _Alert and oriented, No acute distress Musculoskeletal: _Left hand - 4th finger edema and erythema around right side of nail. Small amountof crusted discharge. TTP. Normal ROM. No fluctuation. Assessment/Plan 1.Paronychia of finger STATUS:acute GOAL:resolution PLAN:keflex 500mg qid 5 days, warm water soaks. If worseninf or not improving to return. Attestation Time spent: Pre-visit plannin Mygd-dx-ibog visit: 15 Post-visit (orders/documentation/coordination of care):0 Total visit time: 20 Problem List/Past Medical History Ongoing Adenocarcinoma of prostate Body tinea Cataract, bilateral Diabetes Diabetic neuropathy ED (erectile dysfunction) Horseshoe [...] calcium-vitamin D(Calcium 500+D), 2 gummy, PO, Daily cephalexin(Keflex 500 mg oral capsule), 500 mg= 1 cap, PO, qid famotidine(famotidine 20 mg oral tablet), 20 mg= 1 tab, PO, Daily fluticasone nasal(Flonase 50 mcg/inh nasal spray), 50 mcg= 1 spray, intranasal, bid, 6 refills multivitamin(Prostate 2.4), 2 cap, PO, Daily oxymetazoline nasal(Afrin 0.05% nasal spray), 1 spray, [...] Status Family Member(s) Immunizations Vaccine Date Status pneumococcal 20-valent conjugate vaccine 06/30/2023 Given SARS-CoV-2 mRNA (Dimeres 12+) bivalent 11/15/2022 Recorded SARS-CoV-2 (COVID-19) mRNA [...] Health Maintenance Pending(in the next year) OverDue Diabetic Eye Exam due05/16/23and every 1year Adult Influenza Vaccine due05/27/23and every 1year Due Adult COVID-19 Vaccination due07/24/23Unknown Frequency Adult Tdap/Td Vaccine due07/24/23Unknown Frequency Falls Plan of Care due07/24/23Unknown Frequency Shingles Vaccine due07/24/23One-time only Due In Future Medicare Annual Wellness Visit not due until08/25/23and every 1year Diabetes Management A1c not due until06/19/24and every 1year Body Mass Index not due until07/23/24and every 1year Satisfied(in the past 1 year) Satisfied Adult COVID-19 Vaccination on11/15/22.Satisfied by LIZETTE Blair Sara Body Mass Index on06/30/23.Satisfied by QAMAR Mabry Lori Diabetes Management A1c on06/20/23.Satisfied by Contributor_system, [email or web address] Lipid Screening on07/12/23.Satisfied by Contributor_system, [email or web address] Medicare Annual Wellness Visit on08/25/22.Satisfied by SYSTEM Electronic Signature on File Electronically Reviewed/Signed by: Delores Hernandez DO Author Signature Dt/Tm:07/24/2023 11:18 AM Department of Family Medicine [facility] Patient Care team information Care Team Personnel Name: Wilfred Hernandez DO, Mariana Annette Position: Physician - Family Med Member Role: Primary Care Provider Address: Address: [address] [place] [phone] [place] Name: MD Boyer George F Position: Physician - Family Med Member Role: Lifetime Relationship Address: Address: [address] [place] [phone] [place] Care Team Related Persons Name: LESA BEARD Address: home [address] [place], [place] [id number]
--- OUTSIDE RECORDS SUMMARY | 2023-10-13 18:38 | External Medical Summary | Continuity of Care Document ---
Author Name Unknown Organization [facility] [address] [place], [place] [id number] Care Team Providers Care Civil Drafter Name Role Phone Delores Villarreal Primary Care [email or web address] [phone] [id number] Date(s): 09/25/23 - 09/25/23 [facility] [address] [facility] [address] [facility] [address] [place], [phone] Encounter Diagnosis Type 2 diabetes mellitus without complications(Final) - Discharge Disposition: Home or Self Care Attending Physician: Wilfred Hernandez DO, Mariana Annette Referring Physician: Wilfred Hernandez DO, Mariana Annette Allergies, Adverse Reactions, Alerts Substance Reaction Severity Status sulfa drugs Nausea Active Immunizations Given and Recorded Vaccine Date Status [...] qhs, Disp# 90 tab, Refills: 3, Pharmacy: [facility] Start Date: 07/12/23 Status: Ordered famotidine 20 mg oral tablet Start: 04/06/22 13:28:00 EDT, 1 tab, PO, Daily Start Date: 04/06/22 Status: Ordered Flomax 0.4 mg oral capsule Start: 12/30/22 11:59:00 EST, 1 cap, PO, bid, Disp# 180 cap, Refills: 6, Pharmacy: [facility] Start Date: 12/30/22 Stop Date: 09/20/24 Status: Ordered Flonase 50 mcg/inh nasal spray Start: 09/25/14 9:24:08, 1 spray, intranasal, bid, Disp# 1 each, Refills: 6, Pharmacy: [facility], 1 spray intranasal bid Start Date: 09/25/14 Status: Ordered Prostate 2.4 Start: 01/19/22 13:45:00 EST, 2 cap, PO, Daily Start Date: 01/19/22 Status: Ordered Problem List Condition Confirmation Course Effective Dates [...] 03/22/16 Out Lab GFR: 52.4, Cret: 1.40 Procedures Procedure Date Related Diagnosis Body Site [...] Completed Repair of cystocele 7 Com pleted [place] tooth Completed 1COLO to cecum, rectosigmoid polyp 3 mm CF, rectal polyp 2 mm CF, diverticulosis. 22 hyperplastic polyps removed. Repeat colonoscopy in 5 years. 3Impression: 1. No evidence of pathologic bowel dilation 2. Suspected punctate left renal calculus 4Impression: 1. No hydronephrosis 2. Moderate right and mild left cortical renal thinning. 57mm polyp 4mm polyp 6laser demarcation [id number] Results Laboratory List Name Date Hemoglobin A1C (HEMOGLOBIN, A1C) 3 Most recent to oldest [Reference Range]: 1 Estimated Average Glucose 108 mg/dL 1 (09/25/23 9:46 AM) HbA1c [4.0-6.0 %] 5.4 % (09/25/23 9:46 AM) 1Result Comment: Testing Performed By: Dept of Pathology [facility] [address], [address], [place] [address] Social History Social History Type Response Smoking Status Never smoked cigaret aidan Sex Male Patient Care team information Care Team Personnel Name: Wilfred Hernandez DO, Mariana Annette Position: Physician - Family Med Member Role: Primary Care Provider Address: Address: [address] [place] [address] [address] [place] [address] Name: MD Boyer George F Position: Physician - Family Med Member Role: Lifetime Relationship Address: Address: [address] [place] [phone] [place] Care Team Related Persons Name: LESA BEARD Address: home [address] [place] [address], [place] [phone]
== END 2023-10-12 18:45 | disposition home or self-care (01) ==
LOC: ED 13:50 → 3N 13:50 → SUATTDRO 20:12 → 3N 20:54